=== PATIENT | male | born 1980 | race Two or more races ===

== ENCOUNTER 2017-06-20 07:25 | Outpatient (CLI) | payer OTHER | END 2017-06-20 07:36 | disposition home or self-care (01) | LOC: MRI 07:25 | DX: C71.1 Malignant neoplasm of frontal lobe (principal) | CPT/HCPCS: 70553 ==

== ENCOUNTER 2017-09-19 08:26 | Outpatient (CLI) | payer OTHER | END 2017-09-19 08:41 | disposition home or self-care (01) | LOC: MRI 08:26 | DX: C71.1 Malignant neoplasm of frontal lobe (principal) | CPT/HCPCS: 70553 ==

== ENCOUNTER 2017-12-25 09:12 | Outpatient (CLI) | payer OTHER | END 2017-12-25 09:18 | disposition home or self-care (01) | LOC: MRI 09:12 | DX: G93.89 Other specified disorders of brain (principal) | CPT/HCPCS: 70553 ==

== ENCOUNTER 2020-07-27 08:04 | Outpatient (CLI) | payer OTHER | END 2020-07-27 08:16 | disposition home or self-care (01) | LOC: MRI 08:04 | DX: G93.89 Other specified disorders of brain (principal) | CPT/HCPCS: 70553 ==